=== PATIENT | female | born 1965 | race Caucasian/White ===

== ENCOUNTER 2017-05-03 07:38 | Inpatient (IN) | payer OTHER ==
[~2017-05-03] VITALS: Ht 172.7 cm; Wt 155.2 kg
[~2017-05-03 07:38] MED LIST: ALBI1INJ2 SQ; DIFL150T PO; FLUT1SPR5 EACH NARE; FLUTI110I INH; LISI-515 PO; METF500T PO; METR500T10 PO; MOBI15TA PO; PROZ20CA11 PO; SPIR50TA PO; VENTAER INH; ZITH500T PO
[2017-05-03 07:44] VITALS: BP 130/75; PULSE 77; RESP 20; TEMP 98.4; O2SAT 95
[2017-05-03] MEDS ORDERED: SODIUM CHLOR 0.9% 1000 ML INJ 1,000 ML IV SCH (08:03)
[2017-05-03] MEDS ORDERED: DIATRIZOATE MEGLUM/DIATRIZOATE SOD 9 ML CUP ONE (08:05)
--- NOTE | 2017-05-03 08:07 | PD ---
HPI Chief Complaint: Abdominal Pain Time Seen by Provider: 07:51 Travel History International Travel<30 days: No Contact w/Intl Traveler<30days: No Traveled to known affect area: No History of Present Illness HPI 51-year-old female here for evaluation of right-sided abdominal pain. Pain began last night and began her right flank. Pain has progressively worsened throughout the night and is currently 10 out of 10, constant, described as feeling as though her body is being sought in half. Patient experienced nausea and dry heaves today. History of lap band procedure, however 4 years ago she states that the cuff was deflated. No urinary symptoms. PFSH Past Medical History Arthritis: Yes Diabetes: Yes Patient Takes Glucophage: Yes Fibromyalgia: Yes Sleep Apnea: Yes (CPAP AT NIGHT) Influenza Vaccination: No ?: Not LMP: 05/03/2017 Past Surgical History Tonsillectomy: Yes Other Surgery: Yes (LAP BAND 2009 ) Social History Alcohol Use: Yes (OCCASIONALLY) Tobacco Use: No Substance Use: No Allergies-Medications (Allergen,Severity, Reaction): Coded Allergies: Sulfa (Sulfonamide Antibiotics) (Unverified Allergy, Severe, Hives, ) codeine (Unverified Allergy, Severe, VOMITING, 05/03/17) penicillin G (Unverified Allergy, Severe, Hives, 05/03/17) cefepime (Unverified Allergy, Unknown, 05/03/17) per sales consultant, avoid until patient is tested for this (note 2017) ceftaroline fosamil (Unverified Allergy, Unknown, 05/03/17) per sales consultant, avoid until patient is tested for this (note 2017) Uncoded Allergies: No blood transfusion (Adverse Reaction, Severe, yazidism preference, ) Reported Meds & Prescriptions Reported Meds & Active Scripts Active Diflucan (Fluconazole) 150 Mg Tab 150 Mg PO ONCE Flonase Nasal [place] (Fluticasone Nasal [place]) 50 Mcg/Act [place] 50 Mcg EACH NARE DAILY Prozac (Fluoxetine HCl) 20 Mg Cap 20 Mg PO DAILY Metformin (Metformin HCl) 500 Mg Tab 500 Mg PO BIDPC With meals Reported Spironolactone 50 Mg Tab 100 Mg PO BID [place] 4-Pack Inj (Albiglutide) 50 Mg Pfpen 50 Mg SQ Q7D Review of Systems Except as stated in HPI: all other systems reviewed are Neg Physical Exam Narrative GENERAL: Well-developed, well-nourished, overweight, mild distress secondary to pain. SKIN: Focused skin assessment warm/dry. No rash. HEAD: Atraumatic. Normocephalic. EYES: Pupils equal and round. No scleral icterus. No injection or drainage. ENT: Mucous membranes pink and moist. NECK: Trachea midline. No JVD. CARDIOVASCULAR: Regular rate and rhythm. RESPIRATORY: No accessory muscle use. Clear to auscultation. Breath sounds equal bilaterally. GASTROINTESTINAL: Abdomen soft, nondistended. Moderate right upper, right lower , and periumbilical tenderness without peritoneal signs. Normal bowel sounds. No hernias. MUSCULOSKELETAL: No obvious deformities. No clubbing. No cyanosis. No edema. NEUROLOGICAL: Awake and alert. No obvious cranial nerve deficits. Motor grossly within normal limits. Normal speech. PSYCHIATRIC: Appropriate mood and affect; insight and judgment normal. Data Data Last Documented VS Vital Signs Date Time Temp Pulse Resp B/P (MAP) Pulse Ox O2 Delivery O2 Flow Rate FiO2 05/03/17 12:16 59 16 160/93 (115) 100 Nasal Cannula 2.00 05/03/17 07:44 98.4 Orders Orders Complete Blood Count With Diff (05/03/17 08:03) Comprehensive Metabolic Panel (05/03/17 08:03) Lipase (05/03/17 08:03) Prothrombin Time / Inr (Pt) (05/03/17 08:03) Act Partial Throm Time (Ptt) (05/03/17 08:03) Urinalysis - C+S If Indicated (05/03/17 08:03) Ct Abd/Pel W Iv Contrast(Rout) (05/03/17 08:03) Iv Access Insert/Monitor (05/03/17 08:03) Ecg Monitoring (05/03/17 08:03) Oximetry (05/03/17 08:03) Ondansetron Inj (Zofran Inj) (05/03/17 08:15) Sodium Chlor 0.9% 1000 Ml Inj (Ns 1000 M (05/03/17 08:03) Sodium Chloride 0.9% Flush (Ns Flush) (05/03/17 08:15) Morphine Inj (Morphine Inj) (05/03/17 08:15) Diatrizoate Liq ( Gastroview Liq) (05/03/17 08:05) Oral Contrast - Adult (05/03/17 08:39) Urine Culture (05/03/17 08:42) Hydromorphone Pf Inj (Dilaudid Pf Inj) (05/03/17 09:30) Iohexol 350 Inj (Omnipaque 350 Inj) (05/03/17 10:00) Us Abdomen Gallbladder (05/03/17 ) Electrocardiogram (05/03/17 07:59) Hydromorphone Pf Inj (Dilaudid Pf Inj) (05/03/17 12:15) Ciprofloxacin 400 Mg Premix (Cipro 400 M (05/03/17 12:45) Metronidazole 500 Mg Inj (Flagyl 500 Mg (05/03/17 12:45) Admit Order (Ed Use Only) (05/03/17 12:51) Labs Laboratory Tests Test 05/03/17 08:05 05/03/17 08:42 White Blood Count 14.7 TH/MM3 Red Blood Count 4.41 MIL/MM3 Hemoglobin 13.4 GM/DL Hematocrit 39.3 % Mean Corpuscular Volume 89.1 FL Mean Corpuscular Hemoglobin 30.4 PG Mean Corpuscular Hemoglobin Concent 34.2 % Red Cell Distribution Width 14.2 % Platelet Count 356 TH/MM3 Mean Platelet Volume 8.2 FL Neutrophils (%) (Auto) 84.9 % Lymphocytes (%) (Auto) 10.5 % Monocytes (%) (Auto) 3.6 % Eosinophils (%) (Auto) 0.5 % Basophils (%) (Auto) 0.5 % Neutrophils # (Auto) 12.4 TH/MM3 Lymphocytes # (Auto) 1.5 TH/MM3 Monocytes # (Auto) 0.5 TH/MM3 Eosinophils # (Auto) 0.1 TH/MM3 Basophils # (Auto) 0.1 TH/MM3 CBC Comment DIFF FINAL Differential Comment Prothrombin Time 10.5 SEC Prothromb Time International Ratio 1.0 RATIO Activated Partial Thromboplast Time 33.1 SEC Blood Urea Nitrogen 17 MG/DL Creatinine 1.11 MG/DL Random Glucose 123 MG/DL Total Protein 8.0 GM/DL Albumin 3.8 GM/DL Calcium Level 8.9 MG/DL Alkaline Phosphatase 105 U/L Aspartate Amino Transf (AST/SGOT) 13 U/L Alanine Aminotransferase (ALT/SGPT) 21 U/L Total Bilirubin 0.5 MG/DL Sodium Level 133 MEQ/L Potassium Level 4.5 MEQ/L Chloride Level 99 MEQ/L Carbon Dioxide Level 25.4 MEQ/L Anion Gap 9 MEQ/L Estimat Glomerular Filtration Rate 52 ML/MIN Lipase 182 U/L Urine Color LIGHT-YELLOW Urine Turbidity HAZY Urine pH 7.5 Urine Specific [place] 1.014 Urine Protein 30 mg/dL Urine Glucose (UA) NEG mg/dL Urine Ketones NEG mg/dL Urine Occult Blood MOD Urine Nitrite NEG Urine Bilirubin NEG Urine Urobilinogen LESS THAN 2.0 MG/DL Urine Leukocyte Esterase LARGE Urine RBC 32 /hpf Urine WBC /hpf Urine Squamous Epithelial Cells 4 /hpf Urine Bacteria OCC /hpf Urine Hyaline Casts 3 /lpf Microscopic Urinalysis Comment CULTURE INDICATED MDM Medical Decision Making Medical Screen Exam Complete: Yes Emergency Medical Condition: Yes Interpretation(s) EKG: Sinus, rate 70, normal axis, normal intervals, nonspecific T-wave abnormality, no ST segment abnormality. Differential Diagnosis Biliary colic, cholecystitis, appendicitis, ureterolithiasis, pyelonephritis, UTI, cystitis, pancreatitis Narrative Course Vital signs: Heart rate 77, blood pressure 130/75, pulse ox 99% on room air, oral temp of 98.4F. CBC: WBC 14.7, hemoglobin 13.4, hematocrit 39.3, platelets 356, neutrophils 85%. CMP is essentially unremarkable. Lipase is 182. UA: Hazy urine, 30 protein, moderate occult blood, large leukocyte esterase, 32 RBCs, innumerable WBCs, occasional bacteria, culture indicated Right upper quadrant ultrasound: CONCLUSION: 1. Enlarged echogenic liver consistent with hepatic steatosis or medical liver disease. 2. Sludge filled gallbladder containing a single gallstone with subtle gallbladder wall thickening. Otherwise, no definitive sonographic evidence for acute cholecystitis. HIDA scan may be performed to evaluate for cystic duct patency if there is continued clinical uncertainty. The patient was initially given morphine which only minimally reduced her pain. She was given a dose of Dilaudid, and an hour and a half later her pain had returned. She was given another dose of IV Dilaudid. Case discussed with on-call general surgeon for [facility] Dr. Schmid who will admit the patient to his service. Patient has an allergy to cefepime and penicillin. She will be started on Cipro and Flagyl. Diagnosis Primary Impression: Biliary colic Additional Impressions: Intractable abdominal pain UTI (urinary tract infection) Qualified Codes: N39.0 - Urinary tract infection, site not specified; R31.9 - Hematuria, unspecified Admitting Information Admitting Physician Requests: it Jarvis Valencia MD May 03, 2017 08:07
[2017-05-03] MEDS ORDERED: ONDANSETRON HCL 4 MG/2 ML VIAL IVP ONE (08:15)
[2017-05-03] MEDS ORDERED: MORPHINE SULFATE 4 MG/ML INJ IV PUSH ONE (08:15)
[2017-05-03] MEDS ORDERED: SODIUM CHLORIDE 0.9% FLUSH 10 ML FLUSH IV FLUSH PRN ×2 (08:15→14:30)
[2017-05-03 08:17] LABS: AUTOMATED NEUTROPHIL # 12.4 TH/MM3 (1.8-7.7); BASOPHIL # 0.1 TH/MM3 (0-0.2); BASOPHIL % 0.5 % (0.0-2.0); EOSINOPHIL # 0.1 TH/MM3 (0-0.4); EOSINOPHIL % 0.5 % (0.0-4.0); HEMATOCRIT 39.3 % (35.0-46.0); HEMO FLAGS DIFF FINAL; LYMPH % 10.5 % (9.0-44.0); LYMPHOCYTE # 1.5 TH/MM3 (1.0-4.8); MEAN CELL VOLUME 89.1 FL (80.0-100.0); MEAN CORPUSCULAR HEMOGLOBIN 30.4 PG (27.0-34.0); MEAN CORPUSCULAR HGB CONC 34.2 % (32.0-36.0); MONO % 3.6 % (0.0-8.0); NEUT % 84.9 % (16.0-70.0); PLATELET COUNT 356 TH/MM3 (150-450); RED BLOOD COUNT 4.41 MIL/MM3 (4.00-5.30); RED CELL DISTRIBUTION WIDTH 14.2 % (11.6-17.2); WHITE BLOOD COUNT 14.7 TH/MM3 (4.0-11.0)
[2017-05-03 08:25] LABS: APTT (PATIENT) 33.1 SEC (24.3-30.1); PROTHROMBIN TIME - PATIENT 10.5 SEC (9.8-11.6)
[2017-05-03 08:31] LABS: ALT (GPT) 21 U/L (10-53); ANION GAP 9 MEQ/L (5-15); AST (GOT) 13 U/L (15-37); BICARBONATE 25.4 MEQ/L (21.0-32.0); BLOOD UREA NITROGEN 17 MG/DL (7-18); CHLORIDE 99 MEQ/L (98-107); GLOMERULAR FILTRATION RATE 52 ML/MIN (>89); POTASSIUM 4.5 MEQ/L (3.5-5.1); SODIUM (NA) 133 MEQ/L (136-145)
[2017-05-03 08:34] LABS: ALKALINE PHOSPHATASE 105 U/L (45-117); TOTAL BILIRUBIN ADULT 0.5 MG/DL (0.2-1.0)
[2017-05-03 08:46] VITALS: BP 185/87; PULSE 68; RESP 24; O2SAT 99
[2017-05-03 08:58] LABS: BACTERIA, URINE OCC /hpf; BLOOD, URINE MOD (NEG); COMMENT (UR) CULTURE INDICATED; CULTURE IF INDICATED CULTURE INDICATED; GLUCOSE,URINE NEG (NEG); HYALINE CAST, URINE 3 /lpf (RARE); KETONE, URINE NEG (NEG); NITRITE,URINE NEG (NEG); PH, URINE 7.5 (5.0-8.5); SQUAMOUS EPITHELIAL CELL URINE 4 /hpf (0-5); URINE COLOR LIGHT-YELLOW (YELLW/STRAW)
[2017-05-03] MEDS ORDERED: HYDROmorphone HCL PF 1 MG/ML VIAL IV PUSH ONE ×2 (09:30→12:15)
[2017-05-03] MEDS ORDERED: IOHEXOL 350 MG/ML 10 ML VIAL (for RAD DIAG) IVCONTRAST ONE (10:00)
--- NOTE | 2017-05-03 10:24 | RADRPT ---
EXAM DATE/TIME: 05/03/2017 10:02 [facility] COMPARISON: No previous studies available for comparison. INDICATIONS : Right flank pain today. IV CONTRAST: 97 cc Omnipaque 350 (iohexol) IV ORAL CONTRAST: Prescribed oral contrast ingested. RADIATION DOSE: 16.99 CTDIvol (mGy) ; Patient body habitus MEDICAL HISTORY : None SURGICAL HISTORY : Tonsillectomy. lap band ENCOUNTER: Initial ACUITY: 1 day PAIN SCALE: 10/10 LOCATION: Right flank TECHNIQUE: Volumetric scanning of the abdomen and pelvis was performed. Using automated exposure control and adjustment of the mA and/or kV according to patient size, radiation dose was kept as low as reasonably achievable to obtain optimal diagnostic quality images. DICOM format image data is av ailable electronically for review and comparison. FINDINGS: LOWER LUNGS: The visualized lower lungs are clear. LIVER: Homogeneous density without lesion. There is no dilation of the biliary tree. No calcifi ed gallstones. The gallbladder is distended with high layering debris concerning for gallbladder slud ge. No visualized stones are seen. SPLEEN: Normal size without lesion. PANCREAS: Within normal limits. KIDNEYS: Normal in size and shape. There is no mass, stone or hydronephrosis. ADRENAL GLANDS: Within normal limits. VASCULAR: There is no aortic aneurysm. BOWEL/MESENTERY: The stomach, small bowel, and colon demonstrate no acute abnormality. There is a gastric ring and appropriate position of the GE junction. No complications are noted. There is no fr ee intraperitoneal air or fluid. ABDOMINAL WALL: Within normal limits. RETROPERITONEUM: There is no lymphadenopathy. BLADDER: No wall thickening or mass. REPRODUCTIVE: Within normal limits. INGUINAL: There is no lymphadenopathy or hernia. MUSCULOSKELETAL: Within normal limits for patient age. CONCLUSION: #1. The gallbladder is distended with high density layering material likely sludge. No visualized sto jose martin, or, recommend further evaluation of the gallbladder with right upper quadrant ultrasound. 2. No evidence of renal stones. No evidence of hydronephrosis and no evidence of inflammatory process within the abdomen or pelvis. Lisseth Robles MD on May 03, 2017 at 10:19 Board Certified Radiologist. This report was verified electronically.
--- NOTE | 2017-05-03 11:39 | EKG ---
Date Performed: 05/03/2017 Time Performed: 07:59:33 PTAGE: 51 years EKG: Sinus rhythm NONSPECIFIC T-WAVE ABNORMALITY BORDERLINE ECG NO PREVIOUS TRACING DOCTOR: Sy Dowd Interpretating Date/Time 05/03/2017 11:36:41
--- NOTE | 2017-05-03 12:15 | RADRPT ---
EXAM DATE/TIME: 05/03/2017 11:17 [facility] COMPARISON: CT ABDOMEN & PELVIS W CONTRAST, May 03, 2017, 10:02. INDICATIONS : Right upper quadrant pain. MEDICAL HISTORY : Arthritis. Sleep apnea. Polycystic ovarain disease. Urinary incontinence. Diabetes. Depression. A nxiety. Hay fever. SURGICAL HISTORY : Tonsillectomy. Lap band surgery. ENCOUNTER: Initial ACUITY: 1 day PAIN SCORE: 8/10 LOCATION: Right upper quadrant MEASUREMENTS: LIVER: 20.0 cm length COMMON DUCT: 6 mm RIGHT KIDNEY: 10.9 x 5.0 x 6.6 cm FINDINGS: LIVER: Liver is slightly enlarged with diffusely increased echogenicity. No hepatic ductal dilatation or foc al mass. COMMON DUCT: No intraluminal mass or stone visualized. GALLBLADDER: Sludge filled gallbladder with single gallstone measuring 2.3 x 2.2 x 1.5 cm. Minimal gallbladder wal l thickening. No significant pericholecystic fluid or sonographic Ba[place] sign. PANCREAS: The visualized portions are within normal limits. RIGHT KIDNEY: No evidence of hydronephrosis, stone, or mass. CONCLUSION: 1. Enlarged echogenic liver consistent with hepatic steatosis or medical liver disease. 2. Sludge filled gallbladder containing a single gallstone with subtle gallbladder wall thickening. O therwise, no definitive sonographic evidence for acute cholecystitis. HIDA scan may be performed to e valuate for cystic duct patency if there is continued clinical uncertainty. Oracio Singh MD on May 03, 2017 at 12:10 Board Certified Radiologist. This report was verified electronically.
[2017-05-03 12:16] VITALS: BP 160/93; PULSE 59; RESP 16; O2SAT 100
[2017-05-03] MEDS ORDERED: CIPROFLOXACIN 400 MG PREMIX 200 ML IV ONE (12:45)
[2017-05-03] MEDS ORDERED: metroNIDAZOLE 500 MG INJ 100 ML IV ONE (12:45)
[2017-05-03] MEDS ORDERED: HYDROmorphone HCL PF 1 MG/ML VIAL IV PUSH PRN (14:30)
[2017-05-03] MEDS ORDERED: diphenhydrAMINE HCL 25 MG CAP PO PRN (14:30)
[2017-05-03] MEDS ORDERED: ONDANSETRON HCL 4 MG/2 ML VIAL IV PUSH PRN (14:30)
[2017-05-03] MEDS ORDERED: ACETAMINOPHEN/HYDROcodone 325 MG/5 MG TAB PO PRN (14:30)
--- NOTE | 2017-05-03 14:42 | HHI.HP ---
[facility] Service General Surgery Primary Care Physician Marvin Rivera MD Admission Diagnosis biliary colic, intractable abdominal pain Chief Complaint: abdominal pain History of Present Illness Ms. Zamora is a 51 yo F with h/o lap band surgery (decompressed 5 years ago) presents with abdominal pain since last night. She was traveling back from [place] and had eaten barbecue for lunch and fried food for dinner and began to have right sided abdominal pain which initiated in the right lower quadrant in the right flank and back that eventually localized primarily to the right upper quadrant. She had severe dry heaves. The pain persisted and she was unable to sleep last night and therefore presented to the emergency department. She has a history of reported gallbladder attacks which have never been this severe. She had a lap band placed a number of years ago but all the fluid was removed from the lap band in 2011 and she has not had any problems with it since then. She was noted to have leukocytosis and both CT and ultrasound are concerning for acute cholecystitis. Review of Systems Constitutional: DENIES: Fever, Chills Eyes: DENIES: Eye inflammation, Eye pain Ears, nose, mouth, throat: DENIES: Nasal discharge, Oral lesions Respiratory: DENIES: Cough, Wheezing Cardiovascular: DENIES: Chest pain, Palpitations Gastrointestinal: COMPLAINS OF: Abdominal pain, Nausea Musculoskeletal: DENIES: Stiffness, Joint Swelling Integumentary: DENIES: Pruritus, Rash Neurologic: DENIES: Paresthesias, Seizures Past Family Social History Past Medical History Obesity Diabetes mellitus ASAF Past Surgical History Laparoscopic lap band placement Bladder tape Reported Medications Reported Meds & Active Scripts Active Diflucan (Fluconazole) 150 Mg Tab 150 Mg PO ONCE Flonase Nasal [place] (Fluticasone Nasal [place]) 50 Mcg/Act [place] 50 Mcg EACH NARE DAILY Prozac (Fluoxetine HCl) 20 Mg Cap 20 Mg PO DAILY Metformin (Metformin HCl) 500 Mg Tab 500 Mg PO BIDPC With meals Reported Spironolactone 50 Mg Tab 100 Mg PO BID [place]ze[place] 4-Pack Inj (Albiglutide) 50 Mg Pfpen 50 Mg SQ Q7D Allergies: Coded Allergies: Sulfa (Sulfonamide Antibiotics) (Unverified Allergy, Severe, Hives, ) codeine (Unverified Allergy, Severe, VOMITING, 05/03/17) penicillin G (Unverified Allergy, Severe, Hives, 05/03/17) cefepime (Unverified Allergy, Unknown, 05/03/17) per plastics nurse, avoid until patient is tested for this (note 2017) ceftaroline fosamil (Unverified Allergy, Unknown, 05/03/17) per plastics nurse, avoid until patient is tested for this (note 2017) Uncoded Allergies: No blood transfusion (Adverse Reaction, Severe, rastafari preference, ) Active Ordered Medications Current Medications Medications (Trade) Dose Ordered Sig/Bobbi Route Start Time Stop Time Status Last Admin (NS Flush) 2 ml UNSCH PRN IV FLUSH 05/03/17 08:15 Potassium Chloride/Dextrose/ Sod Cl 1,000 ml @ 100 mls/hr Q10H IV 05/03/17 14:25 UNV (NS Flush) 2 ml UNSCH PRN IV FLUSH 05/03/17 14:30 UNV (NS Flush) 2 ml BID IV FLUSH 05/03/17 21:00 UNV Levofloxacin/ Dextrose 100 ml @ 100 mls/hr Q24H IV 05/03/17 14:30 UNV Metronidazole 100 ml @ 100 mls/hr Q8H IV 05/03/17 14:30 UNV (Zofran Inj) 4 mg Q6H PRN IV PUSH 05/03/17 14:30 UNV (Benadryl) 25 mg Q6H PRN PO 05/03/17 14:30 UNV (Dilaudid Pf Inj) 1 mg Q3H PRN IV PUSH 05/03/17 14:30 UNV ([place] 5-325 Mg) 1 tab Q4H PRN PO 05/03/17 14:30 UNV ([place] 5-325 Mg) 2 tab Q4H PRN PO 05/03/17 14:30 UNV (PROzac) 20 mg DAILY PO 05/04/17 09:00 UNV (Aldactone) 100 mg BID PO 05/03/17 21:00 UNV Non-Formulary Medication 50 mcg DAILY EACH NARE 05/04/17 09:00 UNV Family History Noncontributory Social History She travels a lot for work. Family is here with her. Occasional ETOH. No tobacco or drugs. Physical Exam Vital Signs Vital Signs Date Time Temp Pulse Resp B/P (MAP) Pulse Ox O2 Delivery O2 Flow Rate FiO2 05/03/17 12:16 59 16 160/93 (115) 100 Nasal Cannula 2.00 05/03/17 08:46 68 24 185/87 (119) 99 Room Air 05/03/17 07:44 98.4 77 20 130/75 (93) 95 Physical Exam GENERAL: Awake and alert. No acute distress. Cooperative. Morbidly obese. HEAD: Normocephalic. Atraumatic. EYES: Pupils equal round and reactive to light bilaterally. No scleral icterus. ENT: Moist oral mucosa. NECK: Trachea midline. CHEST: Lungs clear to auscultation bilaterally with no wheezing or rhonchi. No respiratory distress. CARDIOVASCULAR: Regular rate and rhythm. ABDOMEN: Moderate right lower quadrant tenderness to palpation. Severe right upper quadrant tenderness to palpation. Round. Lap band port palpable. EXTREMITIES: No cyanosis or edema. SKIN: Warm, dry, nonjaundiced. Laboratory Laboratory Tests Test 05/03/17 08:05 05/03/17 08:42 White Blood Count 14.7 Red Blood Count 4.41 Hemoglobin 13.4 Hematocrit 39.3 Mean Corpuscular Volume 89.1 Mean Corpuscular Hemoglobin 30.4 Mean Corpuscular Hemoglobin Concent 34.2 Red Cell Distribution Width 14.2 Platelet Count 356 Mean Platelet Volume 8.2 Neutrophils (%) (Auto) 84.9 Lymphocytes (%) (Auto) 10.5 Monocytes (%) (Auto) 3.6 Eosinophils (%) (Auto) 0.5 Basophils (%) (Auto) 0.5 Neutrophils # (Auto) 12.4 Lymphocytes # (Auto) 1.5 Monocytes # (Auto) 0.5 Eosinophils # (Auto) 0.1 Basophils # (Auto) 0.1 CBC Comment DIFF FINAL Differential Comment Prothrombin Time 10.5 Prothromb Time International Ratio 1.0 Activated Partial Thromboplast Time 33.1 Blood Urea Nitrogen 17 Creatinine 1.11 Random Glucose 123 Total Protein 8.0 Albumin 3.8 Calcium Level 8.9 Alkaline Phosphatase 105 Aspartate Amino Transf (AST/SGOT) 13 Alanine Aminotransferase (ALT/SGPT) 21 Total Bilirubin 0.5 Sodium Level 133 Potassium Level 4.5 Chloride Level 99 Carbon Dioxide Level 25.4 Anion Gap 9 Estimat Glomerular Filtration Rate 52 Lipase 182 Urine Color LIGHT-YELLOW Urine Turbidity HAZY Urine pH 7.5 Urine Specific [place] 1.014 Urine Protein 30 Urine Glucose (UA) NEG Urine Ketones NEG Urine Occult Blood MOD Urine Nitrite NEG Urine Bilirubin NEG Urine Urobilinogen LESS THAN 2.0 Urine Leukocyte Esterase LARGE Urine RBC 32 Urine WBC Urine Squamous Epithelial Cells 4 Urine Bacteria OCC Urine Hyaline Casts 3 Microscopic Urinalysis Comment CULTURE INDICATED Date/Time Source Procedure Growth Status 05/03/17 08:42 Urine Clean Catch Urine Culture Pending Received Result Diagram: 05/03/1780405/03/17804 Imaging Last Impressions Abdomen/Pelvis CT 05/03/17 0803 Signed Impressions: Service Date/Time: Wednesday, May 03, 2017 10:02 - CONCLUSION: #1. The gallbladder is distended with high density layering material likely sludge. No visualized stones, or, recommend further evaluation of the gallbladder with right upper quadrant ultrasound. 2. No evidence of renal stones. No evidence of hydronephrosis and no evidence of inflammatory process within the abdomen or pelvis. Lisseth Robles MD Gall Bladder Ultrasound 05/03/17 0000 Signed Impressions: Service Date/Time: Wednesday, May 03, 2017 11:17 - CONCLUSION: 1. Enlarged echogenic liver consistent with hepatic steatosis or medical liver disease. 2. Sludge filled gallbladder containing a single gallstone with subtle gallbladder wall thickening. Otherwise, no definitive sonographic evidence for acute cholecystitis. HIDA scan may be performed to evaluate for cystic duct patency if there is continued clinical uncertainty. MD Edmund Coburni VTE Risk Assessment Caprini VTE Risk Assessment: No/Low Risk (score <= 1) Caprini Risk Assessment Model Point Value = 1 Point Value = 2 Point Value = 3 Point Value = 5 Age 41-60 Minor surgery BMI > 25 kg/m2 Swollen legs Varicose veins or History of unexplained or recurrent spontaneous Oral contraceptives or hormone replacement Sepsis (< 1 month) Serious lung disease, including pneumonia (< 1 month) Abnormal pulmonary function Acute myocardial infarction Congestive heart failure (< 1 month) History of inflammatory bowel disease Medical patient at bed rest Age 61-74 Arthroscopic surgery Major open surgery (> 45 min) Laparoscopic surgery (> 45 min) Malignancy Confined to bed (> 72 hours) Immobilizing plaster cast Central venous access Age >= 75 History of VTE Family history of VTE Factor V Leiden Prothrombin [id number] Lupus anticoagulant Anticardiolipin antibodies Elevated serum homocysteine Heparin-induced thrombocytopenia Other congenital or acquired thrombophilia Stroke (< 1 month) Elective arthroplasty Hip, pelvis, or leg fracture Acute spinal cord injury (< 1 month) Prophylaxis Regimen Total Risk Factor Score Risk Level Prophylaxis Regimen 0-1 Low Early ambulation 2 Moderate Order ONE of the following: *Sequential Compression Device (SCD) *Heparin 5000 units SQ BID 3-4 Higher Order ONE of the following medications: *Heparin 5000 units SQ TID *Enoxaparin/Lovenox 40 mg SQ daily (WT < 150 kg, CrCl > 30 mL/min) *Enoxaparin/Lovenox 30 mg SQ daily (WT < 150 kg, CrCl > 10-29 mL/min) *Enoxaparin/Lovenox 30 mg SQ BID (WT < 150 kg, CrCl > 30 mL/min) AND/OR *Sequential Compression Device (SCD) 5 or more Highest Order ONE of the following medications: *Heparin 5000 units SQ TID (Preferred with Epidurals) *Enoxaparin/Lovenox 40 mg SQ daily (WT < 150 kg, CrCl > 30 mL/min) *Enoxaparin/Lovenox 30 mg SQ daily (WT < 150 kg, CrCl > 10-29 mL/min) *Enoxaparin/Lovenox 30 mg SQ BID (WT < 150 kg, CrCl > 30 mL/min) AND *Sequential Compression Device (SCD) Assessment and Plan Assessment and Plan A 51-year-old morbidly obese female with acute cholecystitis On Levaquin and Flagyl and narcotics. She can have Clear liquids. Plan to perform laparoscopic cholecystectomy Friday afternoon. I discussed her situation in detail with the patient and multiple family members and answered multiple questions to the best of my ability. I described laparoscopic cholecystectomy and possible open in detail as well as risks in detail. Mariusz Schmid MD May 03, 2017 14:42
[2017-05-03 15:02] VITALS: BP 171/91; PULSE 58; RESP 16; O2SAT 98
[2017-05-03 16:00] VITALS: BP 161/94; PULSE 72; RESP 18; TEMP 96.2; O2SAT 98
[2017-05-03] MEDS: D5-1/2 NS + KCL 20 MEQ INJ 1,000 ML IV SCH ×2 (16:05→23:37)
[2017-05-03] MEDS: ACETAMINOPHEN/HYDROcodone 325 MG/5 MG TAB PO PRN (20:01)
[2017-05-03] MEDS: SPIRONOLACTONE 100 MG TAB PO SCH (20:01)
[2017-05-03] MEDS: SODIUM CHLORIDE 0.9% FLUSH 10 ML FLUSH IV FLUSH SCH (20:01)
[2017-05-03 20:41] VITALS: BP 148/90; PULSE 68; RESP 18; TEMP 96.7; O2SAT 99
[2017-05-03] MEDS: metroNIDAZOLE 500 MG INJ 100 ML IV SCH (23:37)
[2017-05-04 00:21] VITALS: BP 160/92; PULSE 62; RESP 18; TEMP 97; O2SAT 97
[2017-05-04] MEDS: LEVOFLOXACIN 500 MG PREMIX INJ 100 ML IV SCH (01:42)
[2017-05-04 05:28] LABS: BASOPHIL % 0.3 % (0.0-2.0); EOSINOPHIL # 0.1 TH/MM3 (0-0.4); EOSINOPHIL % 0.8 % (0.0-4.0); HEMATOCRIT 37.7 % (35.0-46.0); HEMO FLAGS DIFF FINAL; LYMPH % 7.4 % (9.0-44.0); MEAN CORPUSCULAR HEMOGLOBIN 29.9 PG (27.0-34.0); MEAN CORPUSCULAR HGB CONC 32.9 % (32.0-36.0); MONO % 6.8 % (0.0-8.0); NEUT % 84.7 % (16.0-70.0); PLATELET COUNT 308 TH/MM3 (150-450); RED BLOOD COUNT 4.14 MIL/MM3 (4.00-5.30); RED CELL DISTRIBUTION WIDTH 14.4 % (11.6-17.2); WHITE BLOOD COUNT 14.1 TH/MM3 (4.0-11.0)
[2017-05-04 06:03] LABS: ANION GAP 5 MEQ/L (5-15); AST (GOT) 46 U/L (15-37); BICARBONATE 25.6 MEQ/L (21.0-32.0); BLOOD UREA NITROGEN 9 MG/DL (7-18); CHLORIDE 102 MEQ/L (98-107); GLOMERULAR FILTRATION RATE 77 ML/MIN (>89); SODIUM (NA) 133 MEQ/L (136-145)
[2017-05-04 06:05] LABS: POTASSIUM 5.8 MEQ/L (3.5-5.1)
[2017-05-04 06:06] LABS: ALKALINE PHOSPHATASE 88 U/L (45-117); ALT (GPT) 23 U/L (10-53); TOTAL BILIRUBIN ADULT 0.9 MG/DL (0.2-1.0)
[2017-05-04] MEDS: metroNIDAZOLE 500 MG INJ 100 ML IV SCH ×3 (06:20→22:51)
[2017-05-04 08:00] VITALS: BP 144/78; PULSE 76; RESP 18; TEMP 98.6; O2SAT 99
[2017-05-04] MEDS: SPIRONOLACTONE 100 MG TAB PO SCH ×2 (08:30→20:25)
[2017-05-04] MEDS: FLUoxetine HCL 20 MG CAP PO SCH (08:30)
[2017-05-04] MEDS: SODIUM CHLORIDE 0.9% FLUSH 10 ML FLUSH IV FLUSH SCH ×2 (08:30→20:25)
[2017-05-04] MEDS: FLUTICASONE PROPIONATE 50 MCG/ACT 16 GM NASAL SPRAY NASAL SCH (10:03)
[2017-05-04] MEDS: D5-1/2 NS + KCL 20 MEQ INJ 1,000 ML IV SCH (11:00)
--- NOTE | 2017-05-04 14:22 | HHI.PR ---
Subjective Subjective Notes The patient states she feels much better than yesterday. She still has occasional pain but it has improved significantly. She's had no nausea or vomiting. She's been able to tolerate a clear liquid diet without problems. Objective Vitals/I&O Vital Signs Date Time Temp Pulse Resp B/P (MAP) Pulse Ox O2 Delivery O2 Flow Rate FiO2 05/04/17 09:11 16 05/04/17 08:00 98.6 76 144/78 (100) 99 05/03/17 20:02 Nasal Cannula 2.00 Labs Laboratory Tests Test 05/04/17 04:30 White Blood Count 14.1 Red Blood Count 4.14 Hemoglobin 12.4 Hematocrit 37.7 Mean Corpuscular Volume 91.0 Mean Corpuscular Hemoglobin 29.9 Mean Corpuscular Hemoglobin Concent 32.9 Red Cell Distribution Width 14.4 Platelet Count 308 Mean Platelet Volume 8.2 Neutrophils (%) (Auto) 84.7 Lymphocytes (%) (Auto) 7.4 Monocytes (%) (Auto) 6.8 Eosinophils (%) (Auto) 0.8 Basophils (%) (Auto) 0.3 Neutrophils # (Auto) 12.0 Lymphocytes # (Auto) 1.0 Monocytes # (Auto) 1.0 Eosinophils # (Auto) 0.1 Basophils # (Auto) 0.0 CBC Comment DIFF FINAL Differential Comment Blood Urea Nitrogen 9 Creatinine 0.79 Random Glucose 127 Total Protein 7.0 Albumin 3.0 Calcium Level 7.8 Alkaline Phosphatase 88 Aspartate Amino Transf (AST/SGOT) 46 Alanine Aminotransferase (ALT/SGPT) 23 Total Bilirubin 0.9 Sodium Level 133 Potassium Level 5.8 Chloride Level 102 Carbon Dioxide Level 25.6 Anion Gap 5 Estimat Glomerular Filtration Rate 77 Date/Time Source Procedure Growth Status 05/03/17 08:42 Urine Clean Catch Urine Culture - Final 50-100,000 CFU/ML MIXED GRAM POSITIVE... Complete Radiology Last Impressions Abdomen/Pelvis CT 05/03/17 0803 Signed Impressions: Service Date/Time: Wednesday, May 03, 2017 10:02 - CONCLUSION: #1. The gallbladder is distended with high density layering material likely sludge. No visualized stones, or, recommend further evaluation of the gallbladder with right upper quadrant ultrasound. 2. No evidence of renal stones. No evidence of hydronephrosis and no evidence of inflammatory process within the abdomen or pelvis. Lisseth Robles MD Gall Bladder Ultrasound 05/03/17 0000 Signed Impressions: Service Date/Time: Friday, May 03, 2017 11:17 - CONCLUSION: 1. Enlarged echogenic liver consistent with hepatic steatosis or medical liver disease. 2. Sludge filled gallbladder containing a single gallstone with subtle gallbladder wall thickening. Otherwise, no definitive sonographic evidence for acute cholecystitis. HIDA scan may be performed to evaluate for cystic duct patency if there is continued clinical uncertainty. Oracio Singh MD Cardiovascular: Regular Extremities: No edema Narrative Exam The patient's abdomen is obese, soft, with minimal tenderness in the right upper quadrant. She has increasing tenderness with deep palpation, but she states that this discomfort is less than yesterday. A/P Assessment and Plan Impression: Acute cholecystitis in this 51-year-old lady. She is on intravenous antibiotics and IV fluids. She's been able to tolerate a clear liquid diet without problem. Plan: The patient has been made nothing by mouth after midnight tonight. Dr. Schmid is planning to take her to the operating room tomorrow afternoon for a laparoscopic cholecystectomy. Jsoe Alvarez MD May 04, 2017 14:22
[2017-05-04 16:00] VITALS: BP 138/74; PULSE 71; RESP 18; TEMP 98.4; O2SAT 96
[2017-05-04 20:41] VITALS: BP 141/75; PULSE 81; RESP 18; TEMP 98; O2SAT 97
[2017-05-04] MEDS: ACETAMINOPHEN/HYDROcodone 325 MG/5 MG TAB PO PRN (22:51)
[2017-05-05 00:20] VITALS: BP 109/68; PULSE 64; RESP 18; TEMP 99.4; O2SAT 96
[2017-05-05] MEDS: LEVOFLOXACIN 500 MG PREMIX INJ 100 ML IV SCH (00:54)
[2017-05-05] MEDS: metroNIDAZOLE 500 MG INJ 100 ML IV SCH ×2 (06:26→13:05)
[2017-05-05 08:00] VITALS: BP 121/69; PULSE 69; RESP 20; TEMP 97.3; O2SAT 96
[2017-05-05] MEDS: FLUTICASONE PROPIONATE 50 MCG/ACT 16 GM NASAL SPRAY NASAL SCH (09:00)
[2017-05-05] MEDS: SPIRONOLACTONE 100 MG TAB PO SCH ×2 (09:00→22:02)
[2017-05-05] MEDS: FLUoxetine HCL 20 MG CAP PO SCH (09:00)
[2017-05-05] MEDS: SODIUM CHLORIDE 0.9% FLUSH 10 ML FLUSH IV FLUSH SCH ×2 (09:00→22:02)
[2017-05-05 12:00] VITALS: BP 118/66; PULSE 60; RESP 19; TEMP 97.9; O2SAT 97
[2017-05-05] MEDS ORDERED: ePHEDrine/NS 25 MG/5 ML SYR IV ONE (12:00)
[2017-05-05] MEDS ORDERED: ROCURONIUM INJ 50 MG/5 ML VIAL IV ONE (12:00)
[2017-05-05] MEDS ORDERED: ONDANSETRON HCL 4 MG/2 ML VIAL IV PUSH ONE (12:00)
[2017-05-05] MEDS ORDERED: PROPOFOL 200 MG/20 ML AMP IV ONE (12:00)
[2017-05-05] MEDS ORDERED: LIDOCAINE HCL 1% PF 5 ML AMPULE OTHER ONE (12:00)
[2017-05-05] MEDS ORDERED: MIDAZOLAM HCL 2 MG/2 ML VIAL IV ONE (12:00)
[2017-05-05] MEDS ORDERED: BUPIVACAINE/EPINEPHRINE 0.25% 50 ML VIAL ONE (12:38)
--- NOTE | 2017-05-05 15:35 | PD.OP ---
cc: Mariusz Schmid MD Operative Report Date of Surgery: May 05, 2017 Preoperative Diagnosis: (1) Acute cholecystitis due to biliary calculus (2) BMI 50.0-59.9, adult Postoperative Diagnosis: (1) BMI 50.0-59.9, adult (2) Acute cholecystitis due to biliary calculus Procedure: Laparoscopic cholecystectomy Anesthesia: SAMANTHA Surgeon: Mariusz Schmid [employer] Instructor(s): Roger CAMACHO Operation and Findings: Complications: None apparent EBL: 250 cc Operative findings: The gallbladder was distended with a very thickened gallbladder wall and acute inflammation. There was dense adhesions in the area of the cystic duct and infundibulum. The right hepatic artery was pulled up towards the gallbladder. Procedure in detail: The patient was taken to the operating room and placed in the supine position. General endotracheal anesthesia was induced. The abdomen was prepped and draped in usual sterile fashion and a surgical timeout was performed to verify correct patient procedure and site. Appropriate perioperative antibiotics were administered. Local anesthetic was injected in the skin and subcutaneous tissue superior to the umbilicus and a 5 mm incision performed. The abdomen was entered using the Optiview 5 mm trocar with direct laparoscopic visualization. The abdomen was then insufflated to 15 mmHg with CO2 gas which the patient tolerated well. Next a 12 mm port was placed in the epigastrium and two 5 mm ports in the right upper quadrant and right lateral abdomen. The patient was placed in reverse Trendelenburg position and turned slightly to the left. Attention was turned to the right upper quadrant. The gallbladder was very distended and tense with a thickened gallbladder wall. About 20 cc of bile was aspirated from the gallbladder. At this point, the dome of the gallbladder was grasped and retracted cephalad. The infundibulum was retracted laterally to expose Calot's triangle. Prolonged difficult and meticulous dissection was performed using judicious electrocautery, suction knit goods mender, [place] dissector. Initial dissection was carried out in the area of the infundibulum and cystic duct. I then performed a partial dome down dissection. The cystic artery was isolated and clips were placed on the gallbladder portion of the artery. It was transected. Finally after careful dissection the cystic duct was delineated and was clearly directly entering the gallbladder. 2 clips were placed proximally and one distally and it was transected. The right hepatic artery branches to the liver was visible and had been drawn up into the area of the infundibulum from inflammation. Finally gallbladder was able to be fully removed from the liver bed. Hemostasis was achieved. The gallbladder was then removed from the abdomen using an Endo Catch bag. The clips were in place on the cystic duct and cystic artery stumps with no bleeding or bile leakage. At this point, the abdomen was allowed to desufflate and trochars were removed. The fascia at the 12 mm port site was closed with 0 Vicryl sutures. Skin was closed with subcuticular 4-0 Monocryl as well as Dermabond. The patient tolerated the procedure well and was extubated and taken to PACU in stable condition. All sponge and instrument counts were correct. Mariusz Schmid MD May 05, 2017 15:35
[2017-05-05 16:00] VITALS: BP 124/62; PULSE 65; RESP 18; TEMP 98.4; O2SAT 95
[2017-05-05] MEDS ORDERED: *morphine SULFATE 8 MG/ML PERIprocedure ONLY ONE (16:01)
[2017-05-05] MEDS: SODIUM CHLOR 0.9% 1000 ML INJ 1,000 ML IV SCH ×2 (16:08→22:03)
[2017-05-05] MEDS ORDERED: *MEPERIDINE 25 MG INJ VIAL PERIprocedural Use ONLY ONE (16:18)
[2017-05-05] MEDS ORDERED: DO NOT ADM ANY ANTICOAGULANT DRUGS PRN (16:30)
[2017-05-05 17:33] LABS: BICARBONATE 30.7 MEQ/L (21.0-32.0); POTASSIUM 4.4 MEQ/L (3.5-5.1)
[2017-05-05] MEDS: ACETAMINOPHEN/HYDROcodone 325 MG/5 MG TAB PO PRN ×2 (17:56→22:02)
[2017-05-05 20:00] VITALS: BP 118/65; PULSE 69; RESP 20; TEMP 97.6; O2SAT 96
[2017-05-06] VITALS: BP 99/69; PULSE 54; RESP 20; TEMP 97.8; O2SAT 95
[2017-05-06 03:53] VITALS: O2SAT 92
[2017-05-06 04:00] VITALS: BP 105/63; PULSE 58; RESP 20; TEMP 97.8; O2SAT 93
[2017-05-06] MEDS: SODIUM CHLOR 0.9% 1000 ML INJ 1,000 ML IV SCH (07:30)
[2017-05-06 08:00] VITALS: BP 128/69; PULSE 62; RESP 17; TEMP 96; O2SAT 99
[2017-05-06] MEDS: FLUoxetine HCL 20 MG CAP PO SCH (08:15)
[2017-05-06] MEDS: SPIRONOLACTONE 100 MG TAB PO SCH (08:15)
[2017-05-06] MEDS: ACETAMINOPHEN/HYDROcodone 325 MG/5 MG TAB PO PRN ×2 (08:15→12:54)
[2017-05-06] MEDS: FLUTICASONE PROPIONATE 50 MCG/ACT 16 GM NASAL SPRAY NASAL SCH (08:16)
[2017-05-06] MEDS: SODIUM CHLORIDE 0.9% FLUSH 10 ML FLUSH IV FLUSH SCH (08:17)
[2017-05-06] MEDS ORDERED: HYDR-3516 PO (10:55)
--- NOTE | 2017-05-06 10:58 | HHI.DS ---
Discharge Summary Admission Date May 03, 2017 at 12:52 Discharge Date: May 06, 2017 Admitting Diagnosis biliary colic, intractable abdominal pain Procedures Lap cholecystectomy Brief History Ms. Zamora is a 51 yo F with h/o lap band surgery (decompressed 5 years ago) presents with abdominal pain since last night. She was traveling back from [place] and had eaten barbecue for lunch and fried food for dinner and began to have right sided abdominal pain which initiated in the right lower quadrant in the right flank and back that eventually localized primarily to the right upper quadrant. She had severe dry heaves. The pain persisted and she was unable to sleep last night and therefore presented to the emergency department. She has a history of reported gallbladder attacks which have never been this severe. She had a lap band placed a number of years ago but all the fluid was removed from the lap band in 2011 and she has not had any problems with it since then. She was noted to have leukocytosis and both CT and ultrasound are concerning for acute cholecystitis. CBC/BMP: 05/04/17 0430 05/05/17 1617 Significant Findings Laboratory Tests Test 05/04/17 04:30 05/05/17 16:17 White Blood Count 14.1 TH/MM3 (4.0-11.0) Neutrophils (%) (Auto) 84.7 % (16.0-70.0) Lymphocytes (%) (Auto) 7.4 % (9.0-44.0) Neutrophils # (Auto) 12.0 TH/MM3 (1.8-7.7) Monocytes # (Auto) 1.0 TH/MM3 (0-0.9) Random Glucose 127 MG/DL (74-106) 113 MG/DL (74-106) Albumin 3.0 GM/DL (3.4-5.0) Calcium Level 7.8 MG/DL (8.5-10.1) 7.9 MG/DL (8.5-10.1) Aspartate Amino Transf (AST/SGOT) 46 U/L (15-37) Sodium Level 133 MEQ/L (136-145) Potassium Level 5.8 MEQ/L (3.5-5.1) Estimat Glomerular Filtration Rate 77 ML/MIN (>89) 70 ML/MIN (>89) Anion Gap 1 MEQ/L (5-15) PE at Discharge NAD Abd: obese, soft, mild post op ttp, bandages in place Hospital Course Patient presented with above findings indicative of acute cholecystitis. She was initially treated with IV pain medication and IV antibiotics, and then underwent difficult but uncomplicated lap cholecystectomy. She was doing well post op, adriana diet, pain controlled with oral meds. Pt Condition on Discharge: Good Discharge Disposition: Discharge Home Discharge Instructions DIET: Follow Instructions for: Low Fat Diet Activities you can perform: See Additionl Instruction Other Activity Instructions: Ok to shower. No heavy lifting. No driving for three days. Follow up Referrals: Surgical - 2 Weeks with Mariusz Schmid MD New Medications: Hydrocodone-Acetaminophen (Hydrocodone-Acetaminophen) 5-325 mg Tab 1-2 TAB PO Q4H PRN for PAIN , #25 TAB Continued Medications: Albiglutide 4-Pack Inj (Tanzeum 4-Pack Inj) 50 Mg Pfpen 50 MG SQ Q7D, #4 PEN Fluconazole (Diflucan) 150 Mg Tab 150 MG PO ONCE for Infection, #1 TAB 0 Refills Fluoxetine (Prozac) 20 Mg Cap 20 MG PO DAILY, #30 CAP 5 Refills Fluticasone Nasal [place] (Flonase Nasal [place]) 50 Mcg/Act Conway 50 MCG EACH NARE DAILY for Allergies, #1 BOTTLE 1 Refill Metformin (Metformin) 500 Mg Tab 500 MG PO BIDPC for Blood Sugar Management, #60 TAB 0 Refills With meals Spironolactone (Spironolactone) 50 Mg Tab 100 MG PO BID, TAB 0 Refills Mariusz Schmid MD May 06, 2017 10:58
[2017-05-13] MEDS ORDERED: FLUO40CA PO (15:24)
[2017-05-13] MEDS ORDERED: CLIN1CAP6 PO (15:24)
== END 2017-05-06 14:19 | disposition home or self-care (01) | DRG 418 ==
LOC: NEPE 07:38 → NEDA 12:52 → N06A 15:51
PROVIDERS: ADMIT Surgery; ATTEND Surgery
PROC: 0FT44ZZ Resection of Gallbladder, Percutaneous Endoscopic Approach (ICD-10-PCS; principal; 2017-05-05 12:26)
DX: K80.62 Calculus of gallbladder and bile duct with acute cholecystitis without obstruction (principal); Z68.43 Body mass index [BMI] 50.0-59.9, adult; E66.01 Morbid (severe) obesity due to excess calories; E11.9 Type 2 diabetes mellitus without complications; G47.33 Obstructive sleep apnea (adult) (pediatric); M19.90 Unspecified osteoarthritis, unspecified site; M79.7 Fibromyalgia; Z98.84 Bariatric surgery status; Z79.84 Long term (current) use of oral hypoglycemic drugs
CPT/HCPCS: 74177; 76705; 80048; 80053; 81001; 83690; 85025; 85610; 85730; 87086; 88304; 93005; 96361; 96374; 96375; 96376; J0744; J1170; J1956; J2175; J2250; J2270; J2405; J3010; J3480; J7030; Q9963; Q9967

== ENCOUNTER → 2017-08-25 | Day surgery (SDC) | payer OTHER ==
--- NOTE | 2017-08-24 17:30 | MH ---
cc: OJ ADAMS M.D. DATE OF ADMISSION 08/25/2017 HISTORY OF THE PRESENT ILLNESS The patient is a 52-year-old white female G0 with her last normal menstrual period being about two years ago. She presented to my office at the end of July complaining of a 2-year history of irregular bleeding, at times very heavy, then at times light, then at times spotting. She reports that she has been bleeding really since the month of May and she is also having a little bit of right lower quadrant pain, at times severe in nature. an ultrasound was done with her primary MD which showed a thickened lining and a possible cervical mass. The patient was also evaluated by [facility] but they were unsuccessful in obtaining an endometrial biopsy. I discussed with her the need for sampling of her endometrial lining and I gave options for trying to do it here in the office or setting her up for a MyoSure under anesthesia and she elects to the MyoSure under anesthesia. PAST MEDICAL HISTORY For this patient is: 1. Obesity. 2. Sleep apnea. 3. Fibromyalgia. 4. Polycystic ovarian syndrome. 5. Diabetes. 6. Arthritis. PAST SURGICAL HISTORY 1. Bladder sling. 2. Tonsillectomy. 3. Cholecystectomy. 4. And foot surgery. MEDICATIONS Currently: 1. Spirolactone. 2. Tanzium. 3. Prozac. 4. Metformin. ALLERGIES PENICILLIN, BACTRIM AND CODEINE. FAMILY HISTORY Lymphoma, breast cancer, Alzheimer's, cirrhosis, arthritis and diabetes. GYNECOLOGIC HISTORY No abnormal Pap. No STDs. OBSTETRICAL HISTORY G0. PHYSICAL EXAMINATION VITAL SIGNS: Her weight is 334, height 5 feet 8 inches, blood pressure 120/76, pulse 70. BREASTS: Without masses, nodes or discharge. CHEST: Clear to auscultation bilaterally. CARDIOVASCULAR: Regular rate and rhythm without murmur, rub or gallop. ABDOMEN: Obese and soft. It is nontender, nondistended. No hepatosplenomegaly. No CVA tenderness. No hernias noted. PELVIC: Vulva and vagina normal. External female genitalia without lesions. Vaginal vault without lesions. Cervix without lesions. Uterus difficult to palpate due to her obesity. Same with the adnexa. ASSESSMENT/PLAN On the patient include perimenopausal bleeding. Plan will be for a MyoSure in the hospital. Oj Adams MD CCD/KK /4:52 PM /5:13 PM
[~2017-08-25] VITALS: Ht 172.7 cm; Wt 152.3 kg
[~2017-08-25] MED LIST changes: +ACETAMINOPHEN 1000 MG/100 ML 100 ML IV ONE; +ALLE12TA2 PO; +CHLORHEXIDINE GLUCONATE 2 % 1 PACK (2 CLOTHS) TOPICAL PRN; +DEXAMETHASONE SOD PHOS 4 MG/ML VIAL IV ONE; -DIFL150T PO; +DO NOT ADM ANY ANTICOAGULANT DRUGS PRN; +FAMOTIDINE 20 MG/2 ML VIAL ONE; +FLUO40CA PO; -FLUTI110I INH; +KETOROLAC TROMETHAMINE 30 MG/ML (IVP) VIAL IV PUSH ONE; +LACTATED RINGER'S 1000 ML IV PRN; +LIDOCAINE HCL 1% PF 5 ML SYRINGE OTHER ONE; -LISI-515 PO; +METOPROLOL TARTRATE 25 MG TAB PO PRN; -METR500T10 PO; +MIDAZOLAM HCL 2 MG/2 ML VIAL ONE; -MOBI15TA PO; +ONDANSETRON HCL 4 MG/2 ML VIAL IV ONE; +ONDANSETRON INJ 8 MG in DEXTROSE 5% IN WATER INJ 50 ML IV PRN; +POVIDONE IODINE 5% (ANTISEPSIS KIT) 4 APPLICATIONS EACH NARE PRN; +PROPOFOL 200 MG/20 ML AMP IV ONE; -PROZ20CA11 PO; +SODIUM CHLORID 0.9% 500 ML IV PRN; -VENTAER INH; -ZITH500T PO; +oxyCODONE/ACETAMINOPHEN 5 MG/325 MG TAB PO PRN
[2017-08-25 14:22] VITALS: BP 100/55; PULSE 68; RESP 16; TEMP 98.4; O2SAT 96
--- NOTE | 2017-08-26 20:31 | MP ---
cc: OJ ADAMS DATE OF SURGERY 08/25/17 PREOPERATIVE DIAGNOSIS Perimenopausal bleeding with an unsuccessful endometrial biopsy in the office. POSTOPERATIVE DIAGNOSIS Perimenopausal bleeding with an unsuccessful endometrial biopsy in the office. PROCEDURE MyoSure dilatation and curettage. METAL COATER OPERATOR Dr. Jeanette Adams ANESTHESIA General by facemask FINDINGS AT SURGERY A large amount of tissue noted in the endometrium BLOOD LOSS Minimal. COMPLICATIONS None PROCEDURE IN DETAIL After proper consents were obtained, the patient was taken to the operating room where general by face mask anesthesia was applied. She was then placed in dorsolithotomy position, sterilely prepped and draped. At this time, I used a weighted speculum to visualize the anterior lip of the cervix, grasped that with the single-tooth tenaculum. I then performed an ECC. I removed a large amount of tissue just with the ECC and she had bleeding with that. I then sounded the uterus to about 9 cm, dilated with Hegar dilators up to about #18. I then placed the MyoSure scope using normal saline as the distending medium into the uterine cavity. Inspection was difficult because there just so much tissue. I performed some of the curetting with a MyoSure, but it was very difficult to visualize so I removed the MyoSure scope and just did a traditional curetting of the endometrial lining removing a very large amount of suspicious tissue. At this time, I removed instruments, counts were correct. There was no bleeding and the patient was stable to the recovery room. MD MAIN Ambrosio/ /7:43 AM /8:16 PM
== END | disposition home or self-care (01) ==
LOC: HSDC 10:08
PROVIDERS: ATTEND Obstetrics & Gynecology
DX: C54.1 Malignant neoplasm of endometrium (principal); N92.4 Excessive bleeding in the premenopausal period; E28.2 Polycystic ovarian syndrome; G47.30 Sleep apnea, unspecified; M79.7 Fibromyalgia; E11.9 Type 2 diabetes mellitus without complications; M19.90 Unspecified osteoarthritis, unspecified site; E66.9 Obesity, unspecified
CPT/HCPCS: 00952; 58558; 84702; 88305; J0131; J1100; J1885; J2250; J2405; J3010; J7120